=== PATIENT | male | born 1940 | race Caucasian/White ===

== ENCOUNTER 2020-11-05 19:08 | Emergency (ER) | payer OTHER ==
[~2020-11-05] VITALS: Ht 152.4 cm; Wt 50.3 kg
[2020-11-05 19:30] VITALS: Ht 152.4 cm; Wt 50.3 kg
[2020-11-05 20:41] LABS: BASOPHIL % 1.1 % (0.2-1.5); PLATELET COUNT 239 x10^3mcL (152-348); RED CELL DISTRIBUTION WIDTH 13.9 % (12.1-16.2)
[2020-11-05 21:09] LABS: CALCIUM 8.9 mg/dL (8.5-10.1); CARBON DIOXIDE 31.8 mmol/L (21-32); CHLORIDE SERUM 99 mmol/L (98-107); GLUCOSE SERUM 102 mg/dL (74-106); POTASSIUM SERUM 3.5 mmol/L (3.5-5.1); SODIUM SERUM 137 mmol/L (136-145)
[2020-11-05 21:13] LABS: ALBUMIN 3.3 g/dL (3.4-5.0); ALKALINE PHOSPHATASE 88 U/L (46-116); ALT/SGPT 19 U/L (16-63); AST/SGOT 29 U/L (15-37); BILIRUBIN TOTAL 0.5 mg/dL (0.20-1.00); TOTAL PROTEIN, SERUM 7.5 g/dL (6.4-8.2)
[2020-11-05 23:53] VITALS: BP 129/70
== END 2020-11-06 00:53 | disposition short-term general hospital (02) ==
LOC: ED 19:08
PROVIDERS: Emergency Medicine
DX: I21.4 Non-ST elevation (NSTEMI) myocardial infarction (principal); Z20.822 Contact with and (suspected) exposure to COVID-19; J44.9 Chronic obstructive pulmonary disease, unspecified; I10 Essential (primary) hypertension
CPT/HCPCS: G0480; J0696; J1644; J7060; U0003